=== PATIENT | male | born 1985 | race Caucasian/White ===

== ENCOUNTER 2024-11-13 05:52 | Emergency (ER) | payer OTHER ==
--- OUTSIDE RECORDS SUMMARY | 2024-11-13 05:55 | XMS REPORT | Continuity of Care Document ---
Author Name Unknown Address [address] [facility] [address] [place] [address] [facility] Address [address] [facility]. [address] [place] [address] Care Team Providers Care Launch Engineer Name Role Phone Pcp, Patient Does Not Have A Primary Care Physic loulou Franklin Miller Attending Clinician [phone] Tootie Torres MD Attending Clinician [phone] Elly GAXIOLA, Elayne Powell Attending Clinician Unavailab SETH Garcia Attending Clinician Unavailable Seth Amaya MD Attending Clinician [phone] Unknown, Attending Attending Clinician Unavailab TOOTIE Morin Attending Clinician UnavailFRANKLIN Souza S Attending Clinician Unavailable Yuki Shin S Attending Clinician [phone] YUKI SLATER S Attending Clinician Unavailable Hussain Loo Attending Clinician UnavailJuan Pablo Dooley Attending Clinician Unavailable VAN DYSON Attending Clinician Unavailable MERVAT RASHEED Admitting Clinician Unavailable Juan Pablo Price Admitting Clinician Unavailable Payers Payer Name Policy Type Policy Number Effective Date Expirati on Date Source Allergies, Adverse Reactions, Alerts Allergy Name Allergy Type Status Severity Reaction(s) Onset Date Inactive Date Treating Clinician Comments Source No Known Allergie s DA Active U 2020-09 00:00: 00 [facility] No Known Allergie s DA Active U 2020-09 00:00: 00 [facility] AMOXICIL HIRAM DRUG INGREDI Active Low Diarrhea 2012-09 00:00: 00 [facility] Amoxicil hiram Drug Allergy Active Nausea and/or Vomiting 2012-09 00:00: 00 [facility] NO KNOWN ALLERGIE S Drug Class Active [facility] Social History Social Habit Start Date Stop Date Quantity Comments Source Exposure to SARS-CoV-2 (event) 2022-12-08 00:00:00 2022-12-18 13:35:00 Not sure [facility] Sex Assigned At 1985 00:00:00 1985 00:00:00 [facility] Smoking Status Start Date Stop Date Source Never smoked tobacco [facility] Medications Ordered Medication Name Filled Medication Name Start Date Stop Date Current Medication? Ordering Clinician Indication Dosage Frequency Signature (SIG) Comments Components Source cetirizine (ZYRTEC) 10 mg tablet 12-18 00:00: 00 Yes [id number] 10mg Take 1 tablet by mouth in the morning. [facility] albuterol 90 mcg/actuati on inhaler 12-18 00:00: 00 Yes [id number] 2{puff} Inhale 2 Puffs every 6 (six) hours as needed for Wheezing or Shortness of Breath. [facility] methylPREDN ISolone (MEDROL, ROLO,) 4 mg tablets 12-18 00:00: 00 Yes [id number] Take by mouth SEE-INSTRU CTIONS. follow package directions [facility] azelastine 137 mcg (0.1 %) nasal spray 12-18 00:00: 00 Yes [id number] 1{spray } Use 1 [place] in each nostril in the morning and 1 [place] in the evening. Use in each nostril as directed [facility] fluticasone propionate 50 mcg/actuati on nasal spray 12-18 00:00: 00 Yes [id number] 1{spray } Use 1 [place] in each nostril in the morning. [facility] doxycycline hyclate 100 mg tablet 4-10 00:00: 00 12-29 04:59 :00 No [id number] 100mg Take 1 tablet by mouth in the morning and 1 tablet in the evening. Do all this for 10 days. [facility] acetaminoph en-codeine (TYLENOL-CO DEINE #3) 300-30 mg tablet 3-15 00:00: 00 Yes [id number] 1{tbl} Take 1 tablet by mouth every 4 (four) hours as needed for Pain (scale 4-6) or Pain (scale 7-10). Indication s: acute pain [facility] HYDROcodone -acetaminop hen (NORCO) 10-325 mg tablet 1 tablet 3-12 08:15: 00 11-19 07:42 :00 No 1{tbl} 1 tablet, Oral, ONCE, 1 dose, On 11/19/22 at 0315, Routine [facility] acetaminoph en-codeine 300-30 mg tablet 3-12 00:00: 00 Yes [id number] 1{tbl} Take 1 tablet by mouth every 4 (four) hours as needed for Pain (scale 7-10). Indication s: acute pain [facility] dextroamphe tamine-amph etamine 10 mg tablet 2-13 00:00: 00 Yes 10mg 1 tablet. [facility] Vital Signs Vital Name Observation Time Observation Value Comments S nathalie Systolic blood pressure 2022-12-18 18:38:00 125 mm[Hg] [facility] Diastolic blood pressure 2022-12-18 18:38:00 83 mm[Hg] [facility] Heart rate 2022-12-18 18:38:00 100 /min [facility] Body temperature 2022-12-18 18:38:00 36.89 Jillian [facility] Respiratory rate 2022-12-18 18:38:00 16 /min [facility] Body height 2022-12-18 18:38:00 182.9 cm [facility] Body weight 2022-12-18 18:38:00 77.225 kg [facility] BMI 2022-12-18 18:38:00 23.09 kg/m2 [facility] Oxygen saturation in Arterial blood by Pulse oximetry 2022-12-18 18:38:00 97 /min [facility] Body weight 2022-12-01 14:37:00 75.751 kg [facility] BMI 2022-12-01 14:37:00 23.29 kg/m2 [facility] Systolic blood pressure 2022-11-22 18:34:00 126 mm[Hg] [facility] Diastolic blood pressure 2022-11-22 18:34:00 84 mm[Hg] [facility] Heart rate 2022-11-22 18:34:00 106 /min [facility] Body height 2022-11-22 18:34:00 180.3 cm [facility] Body weight 2022-11-22 18:34:00 76.068 kg [facility] BMI 2022-11-22 18:34:00 23.39 kg/m2 [facility] Systolic blood pressure 2022-11-19 06:24:00 128 mm[Hg] [facility] Diastolic blood pressure 2022-11-19 06:24:00 93 mm[Hg] [facility] Heart rate 2022-11-19 06:24:00 95 /min [facility] Body temperature 2022-11-19 06:24:00 36.72 Jillian [facility] Respiratory rate 2022-11-19 06:24:00 18 /min [facility] Body height 2022-11-19 06:24:00 180.3 cm [facility] Body weight 2022-11-19 06:24:00 72.576 kg [facility] BMI 2022-11-19 06:24:00 22.32 kg/m2 [facility] Oxygen saturation in Arterial blood by Pulse oximetry 2022-11-19 06:24:00 98 /min [facility] Procedures Procedure Date / Time Performed Performing Clinicia n Source XR HAND 3+ VW RIGHT 2022-11-19 07:00:21 Mervat Rasheed [facility] NOTICE OF PRIVACY PRACTICES 2022-11-19 06:21:21 Doctor Unassigned, [place] [facility] CONSENT/REFUSAL FOR DIAGNOSIS AND TREATMENT 2022-11-19 06:20:40 Doctor Unassigned, [place] [facility] Encounters Start Date/Time End Date/Time Encounter Type Admission Type Attending [facility] Care Facility Care Department Encounter ID Source 2023-02-09 00:00:00 2023-02-09 00:00:00 Letter (Out) Franklin Fritz [facility] 1..840.114 350.1.13.10 4.2.7.2.686 [id number] [facility] 2023-02-09 00:00:00 2023-02-09 00:00:00 Telephone Tootie Torres [facility] 1..840.114 350.1.13.10 4.2.7.2.686 [id number] [facility] 2022-12-22 00:00:00 2022-12-22 00:00:00 Letter (Out) Tootie Torres [facility] 1..840.114 350.1.13.10 4.2.7.2.686 [id number] [facility] 2022-12-19 00:00:00 2022-12-19 00:00:00 Letter (Out) Elayne Sanabria [facility] 1..840.114 350.1.13.10 4.2.7.2.686 [id number] [facility] 2022-12-19 00:00:00 2022-12-19 00:00:00 Telephone Tootie Torres [email or web address] 1.2.840.114 350.1.13.10 4.2.7.2.686 [id number] [facility] 2022-12-18 13:20:00 2022-12-18 14:06:43 Outpatient R SETH AMAYA [facility] [id number] [facility] 2022-12-18 13:20:00 2022-12-18 13:40:00 Urgent Care Seth Amaya Unknown, Attending [facility] 1.2.840.114 350.1.13.10 4.2.7.2.686 [id number] [facility] 2022-12-18 00:00:00 2022-12-18 00:00:00 Letter (Out) Lavern Am[facility]anda [facility] 1.2.840.114 350.1.13.10 4.2.7.2.686 [id number] [facility] 2022-12-18 00:00:00 2022-12-18 00:00:00 Letter (Out) Jose Luis Seth [facility] 1.2.840.114 350.1.13.10 4.2.7.2.686 [id number] [facility] 2022-12-01 10:15:00 2022-12-01 10:25:29 Office Visit Tootie Torres [facility] 1.2.840.114 350.1.13.10 4.2.7.2.686 [id number] [facility] 2022-12-01 10:15:00 2022-12-01 10:25:29 Outpatient R TOOTIE TORRES [facility] [id number] [facility] 2022-11-22 13:45:00 2022-11-22 14:15:00 Office Visit Franklin Fritz [facility] 1.2.840.114 350.1.13.10 4.2.7.2.686 [id number] [facility] 2022-11-22 13:45:00 2022-11-22 13:45:00 Outpatient R FRANKLIN FRITZ [facility] [id number] [facility] 2022-11-22 00:00:00 2022-11-22 00:00:00 Letter (Out) Tootie Torres [facility] 1.2.840.114 350.1.13.10 4.2.7.2.686 [id number] [facility] 2022-11-19 00:29:00 2022-11-19 03:32:00 Emergency SlaterYuki [facility] 1.2.840.114 350.1.13.10 4.2.7.2.686 [id number] [facility] 2022-11-19 00:29:00 2022-11-19 03:32:00 Emergency X YUKI SLATER [facility] [[email or web address] ERT [id number] [facility] 2021-06-27 16:30:00 2021-06-27 06:12:00 Inpatient EM Hussain Loo [facility] DA[facility] [id number] 2021-06-22 17:13:00 2021-06-22 17:13:00 Outpatient Hussain Loo HCACL LABO [id number] [facility] 2021-06-20 13:30:00 2021-06-20 13:30:00 Outpatient Juan Pablo Alonso [facility] RADI [id number] [facility] 2020-03-14 14:20:00 2020-03-14 14:20:00 Outpatient R [facility] [id number] [facility] 2020-03-14 14:20:00 2020-03-14 14:20:00 Outpatient VAN SILVA [facility] [id number] [facility] Results Test Description Test Time Test Comments Results Resul t Comments Source - CT UP EXTREM W/O CONT RT 2021-06-29 19:49:00 [facility] : 1985 Sex: M Patient Name: VINOD DELGADILLO Unit No: [id number] EXAMS: CPT CODE: [id number] CT UP EXTREM W/[place] [address] TECHNIQUE: Volumetric CT data of the right elbow was obtained without use of intravenous contrast. Images were then viewed in the axial, coronal and sagittal planes. CT radiation dose optimization is achieved for this examination by the use of a CT protocol in accordance with ACR practice standards and adherence to forestry scientist's recommendations. INDICATION: M25.521 COMPARISON: None. FINDINGS: No acute fracture or malalignment. No significant cartilage degeneration is visualized. No soft tissue abnormality is identified. IMPRESSION: No acute fracture. at 1949 Reported and signed by: Pato Golden M.D. CC: Juan Pablo Price MD Technologist: Mateo Puldio,RT(R) CTDI: DLP: 0 Trnscrpt: 06/29/2021 (1948) Darline/Darline [facility] NAME: VINOD DELGADILLO [address] [facility] PHYS: BRIMA.01 - Juan Pablo Price MD : 1985 AGE: 36 SEX: M [place], [place] [address] LOC: GLORIA PHONE #: [phone] EXAM DATE: 06/20/2021 STATUS: DEP CLI FAX #: [phone] RAD #: D/C DT PAGE 1 Signed Report Patient Name: VINOD DELGADILLO Unit No: [id number] EXAMS: CPT CODE: [id number] CT UP EXTREM W/[place] [address] () Orig Print D/T: S: 06/29/2021 (1951) [facility] NAME: VINOD DELGADILLO [address] [facility] PHYS: BRIMA.01 - Juan Pablo Price MD : 1985 AGE: 36 SEX: M [place], [place] [address] LOC: GLORIA PHONE #: [phone] EXAM DATE: 06/20/2021 STATUS: DEP CLI FAX #: [phone] RAD #: D/C DT PAGE 2 Signed Report PROTHROMBIN [id number] 16:31:00* Test Item Value Reference Range Interpretation Comme nts PROTHROMBIN TIME PATIENT (test code = PTP) 11.6 secs 10.1-12.5 N INTERNATIONAL NORMAL RATIO (test code = INR) 1.02 <2.0 RECOMMENDED THER APEUTIC RANGE FOR ORAL ANTICOAGULANTTREATMENT: CONDITION INRProphylaxis of venous thrombosis in 2.0 - 3.0 high-risk medical or surgical patientsTreatment of venous thrombosis 2.0 - 3.0Prevention of embolism 2.0 - 3.0Prevention of recurrent embolism, or 3.0 - 4.5 patients with mechanical prosthetic intravascular valves IS PATIENT ON ANTICOAGULANTS ? NHas Lab been notified if Patient is on Heparin Drip? NOIf Yes, order CBC, OCCULT BLOOD, PT every other day NTHROMBOPLASTIN TIME [id number] 16:31:00* Test Item Value Reference Range Interpretation Comme nts PTT ACTIVATED (test code = APTT) 35.4 secs 24.9-37.0 N IS PATIENT ON ANTICOAGULANTS ? NHas Lab been notified if Patient is on Heparin Drip? NOIf Yes, order CBC, OCCULT BLOOD, PT every other day NCBC W/AUTO DIFF 2021-06-22 16:13:00* Test Item Value Reference Range Interpretation Comme nts WHITE BLOOD CELL (test code = WBC) 8.3 K/mm3 5.7-10.5 N RED BLOOD CELL (test code = RBC) 4.84 M/mm3 4.2-5.4 N HEMOGLOBIN (test code = HGB) 13.9 g/dL 12-16 N HEMATOCRIT (test code = HCT) 42.3 % 37-47 N MEAN CELL VOLUME (test code = MCV) 87 fL 80-98 N MEAN CELL HGB (test code = MCH) 28.7 pg 27-34 N MEAN CELL HGB CONCENTRATION (test code = MCHC) 32.9 g/dL 30.8-34.1 N RED CELL DISTRIBUTION WIDTH (test code = RDW) 13.8 % 11-16 N PLT (test code = PLT) 257 K/mm3 130-400 N MEAN PLATELET VOLUME (test c ode = MPV) 11.2 fL 8.9-12.1 N NEUTROPHIL % (test code = NT%) 54.0 % 45-70 N LYMPHOCYTE % (test code = LY%) 28.7 % 20-40 N MONOCYTE % (test code = MO%) 7.6 % 3-10 N EOSINOPHIL % (test code = EO%) 9.2 % 1-5 H BASOPHIL % (test code = BA%) 0.4 % 0.0-1.1 N NEUTROPHIL # (test code = NT#) 4.46 K/mm3 2.00-7.50 N LYMPHOCYTE # (test code = LY#) 2.37 K/mm3 1.50-4.00 N MONOCYTE # (test code = MO#) 0.63 K/mm3 0.2-0.8 N EOSINOPHIL # (test code = EO#) 0.76 K/mm3 0.04-0.4 H BASOPHIL # (test code = BA#) 0.03 K/mm3 0.02-0.10 N MANUAL DIFF REQUIRED (test c ode = MDIFF) NO MANUAL DIFF NUCLEATED RED BLOOD CELL (te st code = NRBC) 0 % 0-0 N - CT UP EXTREM W/O CONT [id number] 16:27:00 [facility] : 1985 Sex: M Patient Name: VINOD DELGADILLO Unit No: [id number] EXAMS: CPT CODE: [id number] CT UP EXTREM W/O CONTRT 10923 TECHNIQUE: Volumetric CT data of the right shoulder was obtained without use of intravenous contrast. Images were then viewed in the axial, coronal and sagittal planes. CT radiation dose optimization is achieved for this examination by the use of a CT protocol in accordance with ACR practice standards and adherence to forestry scientist's recommendations. INDICATION: S42.251A COMPARISON: None. FINDINGS: A recent complex fracture of the right proximal humerus is demonstrated with a horizontal component undermining the humeral neck, resulting in anterior displacement of the humeral shaft by4 mm. There is comminution of the greater tuberosity and displacement of the posterior tuberosity by 5 mm. The fracture largely spares the articular surface of the humeral head. The glenoid is intact. Rotator cuff musculature is normal in volume. The visualized right lung is clear. IMPRESSION: Complex fracture of the right proximal humerus as described. at 1627 Reported and signed by: Pato Golden M.D. CC: Juan Pablo Price MD Technologist: RT Lea(R) CTDI: DLP: 0 Trnscrpt: 06/20/2021 (1627) RichelleSLJ [facility] NAME: VINOD DELGADILLO [address] [facility] [address] PHYS: BRIMA.01 - Juan Pablo Price MD : 1985 AGE: 36 SEX: M [place], [place] [address] LOC: Y.RAD PHONE #: [phone] EXAM DATE: 06/20/2021 STATUS: REG CLI FAX #: [phone] RAD #: D/C DT PAGE 1 Signed Report Patient Name: VINOD DELGADILLO Unit No: [id number] EXAMS: CPT CODE: [id number] CT UP EXTREM W/[place] [address] (Continued) Orig Print D/T: S: 06/20/2021 (1630) [facility] NAME: VINOD DELGADILLO [address] [facility] PHYS: SCOTT.Kristen - Juan Pablo Price MD : 1985 AGE: 36 SEX: M [place] [address] LOC: Y.RAD PHONE #: [phone] EXAM DATE: 06/20/2021 STATUS: REG CLI FAX #: [phone] RAD #: D/C DT PAGE 2 Signed Report Notes Date/Time Note Provider Source 2021-06-29 08:55:00 [facility] Brief Op Note REPORT#:[id number] REPORT STATUS: Signed DATE:06/29/21 TIME: 854 PATIENT: VINOD DELGADILLO UNIT #: [id number] ROOM/BED: : 84 AGE: 36 SEX: M ATTEND: Hussain Loo MD ADM AUTHOR: Vinod Ring MD * ALL edits or amendments must be made on the electronic/computer document * Op/Inv Proc Note - Brief Pre-procedure diagnosis: R proximal humerus fx Post-procedure diagnosis: same as pre procedure dx Procedures performed: ORIF R proximal humerus Primary Surgeon: Hussain Loo MD Assistant Health Educator(s): Frank Faustin MD; Shay Ring MD Findings: fx proximal humerus Complications: none Estimated blood loss in ml's: 150cc Specimens removed/altered: none at 0856 RPT #:[id number] END OF REPORT [facility] 2021-06-27 11:15:00 [id number] [facility] [address] [place] [address] PATIENT NAME: VINOD DELGADILLO ADMIT DATE: 06/27/21 ACCOUNT NO: [id number] ROOM NO: AGE: 36 REPORT TYPE: OPERATIVE REPORT SEX: M ADMITTING PHYSICIAN: ATTENDING PHYSICIAN:Hussain Loo MD OPERATION DATE: 06/27/2021 PREOPERATIVE DIAGNOSIS: Right displaced 3-part proximal humerus fracture. POSTOPERATIVE DIAGNOSIS: Right displaced 3-part proximal humerus fracture. PROCEDURES: Open reduction and internal fixation, right displaced 3-part proximal humerus fracture. SURGEON: Hussain Loo M.D. EXECUTIVE DIRECTOR OF MARKETING: Wade Sarmiento was medically necessary for this procedure and the retraction of vital neurovascular structures throughout the case. SECOND POST ADOPTION COORDINATOR: Vinod Ring M.D. ANESTHESIA: General plus interscalene block. INTRAVENOUS FLUIDS: Per anesthesia. ESTIMATED BLOOD LOSS: 200 mL. COUNTS: Recorded as correct. COMPLICATIONS: There were no apparent complications. SPECIMENS: None. DRAINS: None. FINDINGS: Adequate hardware plate placement and fracture reduction. IMPLANTS USED: DJO Alians right proximal humerus small plate with appropriate length screws. INDICATIONS FOR PROCEDURE: Shay is a 36-year-old male who fell and broke his right shoulder. He had significant superior displacement and posterior displacement of the greater tuberosity fragment as well as valgus impaction of the head fragment, so we felt that this exceeded the amount of displacement that was appropriate in the young active male on his dominant arm. We discussed operative and nonoperative treatment options and he elected to proceed. PATIENT NAME: VINOD DELGADILLO PROCEDURE IN DETAIL: Shay was brought back to the operating table and placed under general endotracheal anesthesia in supine position on well-padded beach chair positioner. He was then sat up into beach chair position making sure his head and neck were secured midline neutral. His right arm and shoulder were prepped and draped in sterile standard fashion. Timeout was called and site, procedure, and the patient were confirmed by all in the room who agreed. Preoperative antibiotics were administered by anesthesia. A standard deltopectoral approach was taken to the shoulder. Full-thickness flaps were elevated down to the level of clavipectoral fascia. Clavipectoral fascia was opened. Subcoracoid, subacromial, and subdeltoid spaces were swept of loose debris. A Benton retractor was placed. The bicipital groove was identified. FiberTape sutures were used in a horizontal mattress fashion to tack the subscapularis, supraspinatus, and infraspinatus. We then had control over the greater tuberosity fragment through these sutures. The fracture was opened. The rongeurs, curettes, and knife were used to remove loose debris in attempts at early healing and mobilized the fracture fragment of the greater tuberosity. Through the defect, we elevated the humeral head into a more appropriate varus orientation of the head fragment relative to the shaft ____ valgus. Once we elevated the head, we pinned this into position to the shaft. We reduced the greater tuberosity fragment into its bed, which is now reduced nicely. In this position, that was pinned in place with provisional K-wire. We chose the right-sided small plate and placed it just lateral to the bicipital groove in appropriate superior to inferior positioning. It was pinned in place. The oblong hole was drilled, measured, and placed in the shaft, so that we could move our plate additionally if needed and then we accepted and liked our plate position and placed the additional locking screws in the proximal segment. It was drilled, measured, and placed in locking fashion. The shaft screws were drilled, measured, and placed in nonlocking fashion. We found this to be acceptable. Final C-arm fluoroscopic images were taken live. C-arm fluoroscopy was used to determine the rotation and there was no screw penetration outside of the humeral head. We then took our previously placed horizontal mattress sutures in each rotator cuff tendons and passed them through holes in the plate and tied them down to the plate for additional fixation of the fragment. The wound was copiously irrigated with normal saline. Vancomycin 2 g powder was placed in the wound and a periarticular injection was placed. A layered closure was performed. Aquacel dressing was placed. The patient was placed into an UltraSling and transferred off the operating table in stable condition without any apparent complications. Dictated By: Hussain Loo MD WT: OP:ASHLEY/CAROLINE/FARAZ Conf#: [id number]/DID#: [id number] Authenticated by Hussain Loo MD On 07/01/2021 11:44:56 AM at 1144 PATIENT NAME: VINOD DELGADILLO [facility]
[2024-11-13 07:28] LABS: Influenza A Ag Negative; Influenza B Ag Negative
[2024-11-13 07:29] LABS: SARS-CoV-2 Antigen Rapid Res Positive (Negative)
--- NOTE | 2024-11-13 07:40 | EDPHYS ---
Physician Documentation [facility] Name: Zhao Weir Age: 39 yrs Sex: Male : 1985 Arrival Date: 11/13/2024 Time: 05:52 Bed 2 Private MD: ED Physician Yogesh Beaulieu HPI: 11/13 07:21 This 39 yrs old Male presents to ER via Ambulatory with complaints of Fever, milton Sore Throat. Historical: - Allergies: 06:53 No Known Allergies; cp4 - Immunization history:: Adult Immunizations up to date. - Infectious Disease History:: Denies. - Social history:: Smoking status: Patient denies any tobacco usage or history of. ROS: 07:30 Constitutional: Negative for fever, chills, and weight loss, Eyes: Negative for injury, milton pain, redness, and discharge, Neck: Negative for injury, pain, and swelling, Cardiovascular: Negative for chest pain, palpitations, and edema, Respiratory: Negative for shortness of breath, cough, wheezing, and pleuritic chest pain, Abdomen/GI: Negative for abdominal pain, nausea, vomiting, diarrhea, and constipation, Back: Negative for injury and pain, : Negative for injury, bleeding, discharge, and swelling, MS/Extremity: Negative for injury and deformity, Skin: Negative for injury, rash, and discoloration, Neuro: Negative for headache, weakness, numbness, tingling, and seizure, Psych: Negative for depression, anxiety, suicide ideation, homicidal ideation, and hallucinations, Allergy/Immunology: Negative for hives, rash, and allergies, Endocrine: Negative for neck swelling, polydipsia, polyuria, polyphagia, and marked weight changes, Hematologic/Lymphatic: Negative for swollen nodes, abnormal bleeding, and unusual bruising, 07:30 ENT: Positive for Exam: 07:37 Constitutional: This is a well developed, well nourished patient who is awake, alert, milton and in no acute distress. Head/Face: Normocephalic, atraumatic. Eyes: Pupils equal round and reactive to light, extra-ocular motions intact. Lids and lashes normal. Conjunctiva and sclera are non-icteric and not injected. Cornea within normal limits. Periorbital areas with no swelling, redness, or edema. Neck: Trachea midline, no thyromegaly or masses palpated, and no cervical lymphadenopathy. Supple, full range of motion without nuchal rigidity, or vertebral point tenderness. No Meningismus. Chest/axilla: Normal chest wall appearance and motion. Nontender with no deformity. No lesions are appreciated. Cardiovascular: Regular rate and rhythm with a normal S1 and S2. No gallops, murmurs, or rubs. Normal PMI, no JVD. No pulse deficits. Respiratory: Lungs have equal breath sounds bilaterally, clear to auscultation and percussion. No rales, rhonchi or wheezes noted. No increased work of breathing, no retractions or nasal flaring. Abdomen/GI: Soft, non-tender, with normal bowel sounds. No distension or tympany. No guarding or rebound. No evidence of tenderness throughout. Back: No spinal tenderness. No costovertebral tenderness. Full range of motion. Male : Normal genitalia with no discharge or lesions. Skin: Warm, dry with normal turgor. Normal color with no rashes, no lesions, and no evidence of cellulitis. MS/ Extremity: Pulses equal, no cyanosis. Neurovascular intact. Full, normal range of motion., bilateral aka Neuro: Awake and alert, GCS 15, oriented to person, place, time, and situation. Cranial nerves II-XII grossly intact. Motor strength 5/5 in all extremities. Sensory grossly intact. Cerebellar exam normal. Normal gait. Psych: Awake, alert, with orientation to person, place and time. Behavior, mood, and affect are within normal limits. 07:37 ENT: Posterior pharynx: Airway: normal, no evidence of obstruction, Tonsils: bilaterally enlarged, with erythema, swelling, that is mild, erythema, that is mild, peritonsillar mass, is not appreciated, Vital Signs: 06:52 BP 123 / 77; Pulse 54; Resp 18; Temp 99.1; Pulse Ox 96% ; Weight 77.11 kg; Height 6 ft. cp4 0 in. ; Pain 7/10; 06:52 Body Mass Index 23.06 (77.11 kg, 182.88 cm) cp4 06:52 Pain Scale: Adult cp4 MDM: 07:08 Medical Screening Exam initiated milton 07:38 Differential diagnosis: viral Infection, bacterial infection, URI, bronchitis, milton pneumonia UTI, gastroenteritis. Data reviewed: vital signs, nurses notes, lab test result(s). Consideration of Admission/Observation Escalation of care including admission/observation considered. I considered the following discharge prescriptions or medication management in the emergency department Medications were administered in the Emergency Department. See MAR. Test considered but Not performed: Labs: no cbc , no comp. 11/13 06:20 Order name: Group A Streptococcus Rapid; Complete Time: 07:30 vc1 11/13 06:20 Order name: COVID-19 Ag + Flu A+B Ag; Complete Time: 07:30 vc1 11/13 07:26 Order name: Throat Culture EDMS Administered Medications: 07:45 Drug: Amoxicillin-Clavulanate PO 875 mg PO once Route: PO; bp 08:11 Follow up: Response: No adverse reaction bp 07:45 Drug: GI Cocktail without - (Maalox PO 30 ml, Lidocaine Mucous Membrane 2 % 15 bp ml) PO once Route: PO; 08:11 Follow up: Response: No adverse reaction bp Disposition Summary: 11/13/24 07:39 Discharge Ordered Notes: Location: Home milton Problem: [facility] Symptoms: have improved milton Condition: Stable milton Diagnosis - Acute upper respiratory infection, unspecified milton - SARS-associated coronavirus as the cause of diseases classified elsewhere milton - Acute pharyngitis, unspecified milton Followup: milton - With: Private Physician - When: 2 - 3 days - Reason: Recheck today's complaints, Continuance of care, Re-evaluation by your physician Discharge Instructions: - Discharge Summary Sheet milton - Pharyngitis milton - Sore Throat milton - Pharyngitis, [id number] milton - Cough, Adult, [id number] milton - Aspirin and Your Heart milton - COVID-19 milton - 10 Things You Can Do to Manage Your COVID-19 Symptoms at Home - [facility] (03/25/2021) milton - Symptoms of COVID-19 - [facility] (11/29/2021) milton - COVID-19: Quarantine and Isolation - [facility] (12/07/2021) [facility] Forms: - Medication Reconciliation Form milton - Antibiotic Education milton - Prescription Opioid Use milton - Patient Portal Instructions milton - Leadership Thank You Letter [facility] Prescriptions: - Paxlovid 300 mg (150 mg x 2)-100 mg Oral Tablet, Dose Pack - take 1 dose pack ORAL route as directed on dose pack take TWO 150 mg tablets of milton nirmatrelvir with ONE 100 mg tablet of ritonavir twice daily for 5 days; 30 tablet; Refills: 0, Product Selection Permitted - Augmentin 875-125 mg Oral Tablet - take 1 tablet ORAL route every 12 hours for 10 days; 20 tablet; Refills: 0, [facility] Product Selection Permitted - Pepcid 20 mg Oral tablet - take 1 tablet ORAL route every 12 hours for 21 days; 42 tablet; Refills: 0, [facility] Product Selection Permitted - Tessalon Perles 100 mg Oral capsule - take 2 capsule ORAL route every 8 hours As needed; 30 capsule; Refills: 0, [facility] Product Selection Permitted Signatures: Dispatcher [employer] Yogesh Hayward MD MD cha Peltier, Brian, RN RN Ariana Beth cp
--- NOTE | 2024-11-13 07:40 | ER ---
Nurse's Notes [facility] Name: Zhao Weir Age: 39 yrs Sex: Male : 1985 Arrival Date: 11/13/2024 Time: 05:52 Bed 2 Private MD: Diagnosis: Acute upper respiratory infection, unspecified;SARS-associated coronavirus as the cause of diseases classified elsewhere;Acute pharyngitis, unspecified Presentation: 11/13 06:52 Chief complaint: Patient states: sore throat and fever that started 2 days ago.. cp4 Coronavirus screen: Client denies travel out of the [place] in the last 14 days. At this time, the client does not indicate any symptoms associated with coronavirus-19. Ebola Screen: Patient negative for fever greater than or equal to 101.5 degrees Fahrenheit, and additional compatible Ebola Virus Disease symptoms Patient denies exposure to infectious person. Patient denies travel to an Ebola-affected area in the 21 days before illness onset. No symptoms or risks identified at this time. Initial Sepsis Screen: Does the patient meet any 2 criteria? No. Patient's initial sepsis screen is negative. Does the patient have a suspected source of infection? No. Patient's initial sepsis screen is negative. Risk Assessment: Do you want to hurt yourself or someone else? Patient reports no desire to harm self or others. Onset of symptoms was November 11, 2024. 06:52 Method Of Arrival: Ambulatory cp4 06:52 Acuity: PEPE 4 cp4 Triage Assessment: 06:53 General: Appears in no apparent distress. comfortable, Behavior is calm, cooperative, cp4 appropriate for age. Pain: Complains of pain in right leg and left leg Pain does not radiate. Pain currently is 7 out of 10 on a pain scale. EENT: Reports difficulty swallowing since 2 days ago. Historical: - Allergies: 06:53 No Known Allergies; cp4 - Immunization history:: Adult Immunizations up to date. - Infectious Disease History:: Denies. - Social history:: Smoking status: Patient denies any tobacco usage or history of. Screenin:10 [facility] ED Fall Risk Assessment (Adult) History of falling in the last 3 months, bp including since admission No falls in past 3 months (0 pts) Confusion or Disorientation No (0 pts) Intoxicated or Sedated No (0 pts) Impaired Gait No (0 pts) Mobility Assist Device Used No (0 pt) Altered Elimination No (0 pt) Score/Fall Risk Level 0 - 2 = Low Risk Oriented to surroundings. Abuse screen: Denies threats or abuse. Denies injuries from another. Nutritional screening: No deficits noted. Tuberculosis screening: No symptoms or risk factors identified. Assessment: 07:00 General: Appears in no apparent distress. ill, Behavior is calm, cooperative, bp appropriate for age. Respiratory: Airway is patent Respiratory effort is even, unlabored, Breath sounds are clear bilaterally. EENT: Throat is clear. 08:10 Reassessment: Patient appears in no apparent distress at this time. Patient is alert, bp oriented x 3, equal unlabored respirations, skin warm/dry/pink. Vital Signs: 06:52 BP 123 / 77; Pulse 54; Resp 18; Temp 99.1; Pulse Ox 96% ; Weight 77.11 kg; Height 6 ft. cp4 0 in. ; Pain 7/10; 06:52 Body Mass Index 23.06 (77.11 kg, 182.88 cm) cp4 06:52 Pain Scale: Adult cp4 ED Course: 05:56 Patient arrived in ED. gm2 06:52 Ariana Singh is Primary Nurse. cp4 06:53 Triage completed. cp4 06:53 Arm band placed on right wrist. Patient placed in waiting room. cp4 07:08 Yogesh Beaulieu MD is Attending Physician. milton 07:15 COVID swab sent to lab. Flu and/or RSV swab sent to lab. Strep swab sent to lab. cp4 08:10 Patient has correct armband on for positive identification. bp 08:10 No provider procedures requiring assistance completed. Patient did not have IV access bp during this emergency room visit. Administered Medications: 07:45 Drug: Amoxicillin-Clavulanate PO 875 mg PO once Route: PO; bp 08:11 Follow up: Response: No adverse reaction bp 07:45 Drug: GI Cocktail without - (Maalox PO 30 ml, Lidocaine Mucous Membrane 2 % 15 bp ml) PO once Route: PO; 08:11 Follow up: Response: No adverse reaction bp Medication: 08:10 VIS not applicable for this client. bp Outcome: 07:39 Discharge ordered by . milton 08:10 Discharged to home ambulatory, bp 08:10 Condition: stable 08:10 Discharge instructions given to patient, Instructed on discharge instructions, follow up and referral plans. medication usage, Demonstrated understanding of instructions, follow-up care, medications, Prescriptions given X 3, 08:12 Patient left the ED. bp Signatures: Yogesh Beaulieu MD MD cha Peltier, Brian, RN RN Ariana Beth cp4 Roxie Marquez 2
[2024-11-13] MEDS ORDERED: AMOX/K CLAV 875 MG TAB ONE (07:52)
[2024-11-13] MEDS ORDERED: LIDOCAINE VISCOUS 2% 10ML ORAL SOLN ONE (07:52)
[2024-11-13] MEDS ORDERED: MAGNES/ALUMIN/SIMET 30ML UCUP ONE (07:52)
[2024-11-13 08:17] VITALS: BP 123/77; TEMP 99.1; O2SAT 96
== END 2024-11-13 08:12 | disposition home or self-care (01) ==
LOC: ER 05:52
DX: U07.1 COVID-19 (principal); J06.9 Acute upper respiratory infection, unspecified; J02.9 Acute pharyngitis, unspecified
CPT/HCPCS: 36415; 87070; 87428; 99283